=== PATIENT | female | born 1980 | race Two or more races ===

== ENCOUNTER 2022-08-26 11:47 | Emergency (ER) | payer OTHER ==
[~2022-08-26] VITALS: Ht 162.6 cm; Wt 66.7 kg
[2022-08-26] MEDS ORDERED: DICLOFENAC POTA50 MG PO (15:25)
[2022-08-26] MEDS ORDERED: ORPHENADRINE C100 MG PO (15:25)
== END 2022-08-26 15:54 ==
LOC: ER 11:47
DX: R07.89 Other chest pain (principal); Z88.8 Allergy status to other drugs, medicaments and biological substances